=== PATIENT | male | born 1980 | race Caucasian/White ===

== ENCOUNTER 2021-07-25 07:15 | Day surgery (SDC) | payer OTHER ==
[~2021-07-25] VITALS: Ht 180.3 cm; Wt 80.0 kg
[2021-07-25] VITALS (170 sets, daily range): BP systolic 90–135; BP diastolic 41–86
--- NOTE | 2021-07-25 07:10 | NUR ---
PT TRANSPORTED TO PROCEDURE AT THIS TIME VIA STRETCHER WITH AND MALATHI JEFFERSON.
--- NOTE | 2021-07-25 07:12 | NUR ---
PT ARRIVES TO FLOOR AMBULATORY, ALERT AND ORIENTED X4 WITH SPOUSE. ORIENTED TO ROOM, CALL LIGHT AND PROCEDURES. CHANGED INTO GOWN, CONSENTS DISCUSSED AND SIGNED , OBTAINED COVID SWAB AND LABS ORDERED. ORIENTED TO ROOM, CALL THAKUR SYSTEM AND BED IN LOW POSITION.
[2021-07-25 08:35] LABS: IMMATURE GRANULOCYTES 0.3 % (0.0-5.0); MEAN CELL VOLUME 92.3 fL CALC (80.0-100.0); MEAN CORPUSCULAR HGB 32.2 pG CALC (26.0-32.0); MEAN CORPUSCULAR HGB CONC 34.9 g/dL CAL (32.0-36.0); NEUT# 2.22 thou/uL (1.82-7.42); RED BLOOD COUNT 4.66 mill/uL (4.70-6.10); RED CELL DISTRI WIDTH 11.6 % (11.5-15.5)
[2021-07-25 09:42] LABS: ALBUMIN 4.3 g/dL (3.2-5.0); ALKALINE PHOSPHATASE 75 u/l (38-126); ANION GAP 10 (6-22 (CALC)); BILIRUBIN, TOTAL 0.9 mg/dL (0.0-1.4); BUN 15 mg/dL (9-20); BUN/CREATININE RATIO 13 (12-20 (CALC)); CARBON DIOXIDE 32 mmol/l (22-30); CHLORIDE 102 mmol/l (95-108); CREATININE 1.2 mg/dL (0.7-1.3); GFR > 60 ML/MIN (>=60 (CALC)); GFR FOR AFR.AMER. > 60 ML/MIN (>=60 (CALC)); POTASSIUM 4.6 mmol/l (3.5-5.1); SGOT/AST 117 u/l (17-59); SODIUM 139 mmol/l (137-146); TOTAL PROTEIN 6.9 g/dL (6.3-8.2)
[2021-07-25] MEDS ORDERED: ZEGERID1 CA1 PO (12:06)
--- NOTE | 2021-07-25 12:30 | NUR ---
Induction Note Patient to ANR procedure room. Time out performed at . Patient placed on monitors, [place] hugger, bilateral wrist restraints applied for ET tube protection. Versed 5mg given IV push at 1237 Tourniquet applied to RT arm Lidocaine 100mg given [id number] IV push followed by Rocoronium 10mg at IV push and held for 90 seconds. Propofol bolus of 80mg given at 1240 IV push. Succinylcholine 80mg given IV push at 1241. Smooth intubation with 7.5 ETT. Positive CO2. Positive Auscultation for air exchange. Patient placed on ventilator for spontaneous ventilation. Placed on Propofol IV drip at . OG inserted. Positive air on auscultation. Positive gastric content. Stomach washed at this time. 1310 Naltrexone 75mg given via OG tube with Clonidine 0.2 mg given via OG Tube. OG clamped for 45 minutes. Will monitor patient for symptoms of withdrawal and adjust propfol accordingly.
--- NOTE | 2021-07-25 13:55 | NUR ---
OG open note OG open at this time. Gastric content draining into drainage bag. OG to drain for 45 minutes. Propofol will be titrated down based on patient.
--- NOTE | 2021-07-25 14:45 | NUR ---
OG close note Stomach washed at this time. Naltrexone 50mg via OG tube. CLONIDINE held at this time d/t hypotenison OG will be clamped for 45 minutes.Will titrate propofol accordingly
[2021-07-25] MEDS ORDERED: KLONOPIN2 MG PO (15:14)
--- NOTE | 2021-07-25 15:20 | NUR ---
OG close note Stomach washed at this time. Clonidine 0.2 mg via OG tube.no naltrexone with this dose per Dr shea OG will be clamped for 45 minutes.
--- NOTE | 2021-07-25 16:20 | NUR ---
OG close note Stomach washed at this time. Clonidine 0.2 mg via OG tube. OG will be clamped for 45 minutes. Naltrexone dose held per Dr Martin
--- NOTE | 2021-07-25 16:30 | NUR ---
Closing medications given Benadryl 50mg IV push, Decadron 10mg IV push,Magnesium 4 grams IV, Zofran 8mg IV push, Octreotide 100mcg SC. Stomach washed out prior to medical office administrator.Given clonidine 0.2mg via ogt. Dr Martin at bedside
--- NOTE | 2021-07-25 16:56 | NUR ---
PT STILL IN PROCEDURE AT THIS TIME.
--- NOTE | 2021-07-25 17:50 | NUR ---
Extubation note Stomach washed out prior to extubation. Suctioned gastric content. OG removed. Patient extubated. Propofol Discontinued. Wrist restraints removed. [place] hugger Removed. See ANR Moderate sedate recovery record for further notes and assessment.
--- NOTE | 2021-07-25 18:10 | NUR ---
PT ARRIVED VIA STRETCHER WITH MIKA JAMES. O2 IN PLACE @2L VIA NC.PT SLEEPING, BREATHING EVEN AND UNLABORED. FALL/SAFTEY PRECAUTION IN PLACE. CALL LIGHT WITHIN REACH.
--- NOTE | 2021-07-25 18:15 | NUR ---
Transported to [facility] in no distress. bedside report to Fay BRENNAN
--- NOTE | 2021-07-25 18:40 | NUR ---
PT MOANING, TRYING TO GET OUT OF BED. ATIVAN GIVEN PER EMAR.
--- NOTE | 2021-07-25 19:00 | NUR ---
PT IN BED. BEDSIDE REPORT FROM MIKA MCDONOUGH.
--- NOTE | 2021-07-25 20:02 | NUR ---
PT IN BED, STILL DROWSY FROM PROCEDURE. EVEN AND UNLABORED RESPIRATIONS;CLEAR LUNG SOUNDS UPON AUSCULTATION. O2 2 2L VIA NASAL CANNULA IN PLACE. HYPOACTIVE BOWEL SOUNDS X4 QUADRANTS. SKIN IS INTACT. IV SITES HEALTHY AND PATENT. BED ALARM AND SAFETY PRECAUTIONS IN PLACE. CALL LIGHT WITHIN REACH.
--- NOTE | 2021-07-26 00:05 | NUR ---
PT SLEEPING IN BED. NO DISTRESS OR PAIN NOTED. BED ALARM AND SAFETY PRECAUTIONS IN PLACE. CALL LIGHT WITHIN REACH.
[2021-07-26 02:43] VITALS: BP 115/59
--- NOTE | 2021-07-26 04:15 | NUR ---
PT SLIGHTLY AWAKE. ADMINISTERED SCHEDULED MEDICATION PER EMAR. NO DISTRESS NOTED. PT DENIES PAIN AT THE MOMENT. PT HELPED TO RESTROOM. PT BACK IN BED. BED ALARM AND SAFETY PRECAUTIONS IN PLACE. CALL LIGHT WITHIN REACH.
[2021-07-26 06:06] LABS: HEMATOCRIT 41.4 % (39.0-50.0); HEMOGLOBIN 14.3 g/dl (14.0-18.0); IMMATURE GRANULOCYTES 0.5 % (0.0-5.0); MEAN CELL VOLUME 92.8 fL CALC (80.0-100.0); MEAN CORPUSCULAR HGB 32.1 pG CALC (26.0-32.0); MEAN CORPUSCULAR HGB CONC 34.5 g/dL CAL (32.0-36.0); NEUT# 6.86 thou/uL (1.82-7.42); RED BLOOD COUNT 4.46 mill/uL (4.70-6.10); RED CELL DISTRI WIDTH 11.6 % (11.5-15.5)
[2021-07-26 06:43] LABS: ALBUMIN 3.9 g/dL (3.2-5.0); ALKALINE PHOSPHATASE 105 u/l (38-126); ANION GAP 13 (6-22 (CALC)); BILIRUBIN, TOTAL 0.9 mg/dL (0.0-1.4); BUN 13 mg/dL (9-20); BUN/CREATININE RATIO 13 (12-20 (CALC)); CHLORIDE 107 mmol/l (95-108); GFR > 60 ML/MIN (>=60 (CALC)); GFR FOR AFR.AMER. > 60 ML/MIN (>=60 (CALC)); MAGNESIUM 2.6 mg/dL (1.6-2.3); POTASSIUM 4.2 mmol/l (3.5-5.1); SGOT/AST 97 u/l (17-59); SODIUM 139 mmol/l (137-146); TOTAL PROTEIN 6.3 g/dL (6.3-8.2)
[2021-07-26 06:53] LABS: CARBON DIOXIDE 23 mmol/l (22-30)
--- NOTE | 2021-07-26 07:00 | NUR ---
RECIEVED REPORT FROM MIGUEL ANGEL COONEY
[2021-07-26 07:57] VITALS: BP 95/54
--- NOTE | 2021-07-26 07:57 | NUR ---
PT RESTING IN SEMI FOWLERS POSITION. PT A/OX3. ASSESSMENT AND VITALS COMPLETED. RESPIRATIONS EVEN AND UNLABORED. LUNG SOUNDS CLEAR. HEART RHYTHM NORMAL. BOWEL SOUNDS ACTIVE. #18G LH AND #20G RAC FLUSHED, SITES PATENT. SKIN INTACT. PULSES STRONG. PT DENIES OF ANY DISCOMFORTS AT THIS TIME. ALL SAFTY PRECAUTIONS ARE IN PLACE WITH CALL LIGHT IN REACH. WILL CONTINUE TO MONITOR.
--- NOTE | 2021-07-26 09:08 | NUR ---
PT DRESSED AND "STRECHING". SENIOR SALES CONSULTANT ASKED IF PT WANTED TO SHOWER. PT STATES HE ALREADY DID. HAIR IS WET AND REGULAR CLOTHES NOTED. COFFEE PROVIDED. PT SITTING UP ON SIDE OF BED. PT DENIES OF ANY ADDITIONAL NEEDS AT THIS TIME. ALL SAFTEY PRECAUTIONS ARE IN PLACE WTIH CALL LIGHT IN REACH. WILL CONTINUE TO MONITOR.
--- NOTE | 2021-07-26 09:23 | NUR ---
BONNIE PT ADVOCATE AT BEDSIDE.
--- NOTE | 2021-07-26 10:50 | NUR ---
PT EDUCATED ON DC INSTRUCTIONS AND MEDICATIONS. PT VERBLAIZED UNDERSTANDING. #20G RAC AND #18H LH REMOVED WITH CATH STILL INTACT.
[2021-07-26 10:57] VITALS: BP 98/54
--- NOTE | 2021-07-26 10:57 | NUR ---
Discharge instructions given. Patient verbalizes understanding of same. Discharged in stable condition via Wheelchair to Home with staff. All belongings sent with pt. PT DC HOME IN STABLE CONDITION WITH ALL DC INSTRUCTIONS AND PERSONAL BELONGINGS ACCOMPAINED BY ANR STAFF.
== END 2021-07-26 10:57 | disposition home or self-care (01) | DRG 897 ==
LOC: MS2 07:15 → ANR 07:15
PROVIDERS: ATTEND Anesthesiology
DX: F11.20 Opioid dependence, uncomplicated (principal)
CPT/HCPCS: J2060; J2354; J3475